=== PATIENT | female | born 1975 | race Hispanic/Latino ===

== ENCOUNTER → 2017-04-18 | Day surgery (SDC) | payer OTHER ==
[~2017-04-18] VITALS: Ht 157.5 cm; Wt 65.8 kg
--- NOTE | 2017-04-18 09:29 | Operative Report ---
Operative/Inv Procedure Report Surgery Date: 04/18/17 Name of Procedure: Excision sebaceous cyst, over sternum Pre-Operative Diagnosis: Sebaceous cyst Post-Operative Diagnosis: Same Estimated Blood Loss: scant Surgeon/General [employer] Yard Supervisor: Arlette Guaman MD Anesthesia: local monitored anesthesi Specimens: Cysts Operative/Procedure Note Note: Patient had a mass over her sternum between her breasts. Since his been long- standing but is increased in size and is symptomatic. She was brought to the operating room for excision. Preoperative diagnosis a sebaceous cyst. She was brought to the operating room and placed supine on the table. 2 g of Ancef was given and the area was prepped and draped in a sterile fashion using ChloraPrep. Local anesthesia 1% lidocaine mixed with half percent Marcaine was given and a longitudinal incision was made over the mass. Care was taken to dissect the subcutaneous plane and the mass was excised. This was sent for pathology. Hemostasis was adequate. The space was closed in 2 layers with interrupted Vicryl sutures. Skin was closed using a running subcuticular stitch. Steri-Strips and sterile dressings were applied and the patient was transferred to the recovery room in satisfactory condition having tolerated the procedure well.
== END ==
LOC: STS 02:46
DX: L72.0 Epidermal cyst (principal)
CPT/HCPCS: 81025; J0690; J2250